=== PATIENT | male | born 1945 | race Hispanic/Latino ===

== ENCOUNTER → 2019-03-19 | Day surgery (SDC) | payer MEDICARE, BC ==
--- NOTE | 2019-03-15 15:04 | Diagnostic Imaging Report ---
EXAMINATION: CHEST 2 VIEWS INDICATION: Pre-operative COMPARISON: None FINDINGS: LINES/TUBES:None LUNGS:The lungs are well-inflated. No focal consolidation or pulmonary edema. PLEURA:No pleural effusion or pneumothorax. MEDIASTINUM:The cardiomediastinal silhouette appears normal in size and shape. BONES/SOFT TISSUES:No acute osseous injury. ABDOMEN:No free air under the diaphragm. IMPRESSION: No focal pneumonia or pulmonary edema. Signed by: Faby Gonsalez MD on 03/15/2019 3:01 PM
[~2019-03-19] MED LIST: ACETAMINOPHEN 1000 MG/100 ML 100 ML IV ONE; AMLODIPINE BESY10 MG PO; ATORVASTATIN CA10 MG PO; BACTRIM DS TAB1 EACH PO; BUPIVACAINE 0.25% 30ML SDV INJ ONE; CALCITRIOL0.25 MCG PO; CEFAZOLIN SOD 1 GM/NS 50ML 100 ML IV ONE; CELLCEPT500 MG PO; DEXAMETHASONE SOD PHOS INJ 4 MG/ML VIAL ONE; FENTANYL CITRATE/PF 100MCG/2 ML INJ ONE; HYDRALAZINE HCL25 MG PO; LEVOTHYROXINE50 MCG PO; LIDOCAINE HCL (LTA) 4 ML SOLN ONE; LIDOCAINE HCL 2% JELLY 5 ML TUBE ONE; LIDOCAINE HCL 2% LOCAL INJ 5 ML SDV VIAL INJ ONE; LOSARTAN POTASS25 MG; MIDAZOLAM HCL 2 MG/2 ML VIAL ONE; MULTI-VITAMIN1 EACH; ONDANSETRON HCL INJ 2MG/ML 2ML 2 MG/ML VIAL ONE; PANTOPRAZOLE SO40 MG PO; PROGRAF0.5 MG; PROPOFOL IV EMULSION 10 MG/ML 20 ML VIAL ONE; ROCURONIUM BROMIDE 10 MG/ML 5ML VIAL ONE; SEVOFLURANE INHAL SOLN 250 ML PEN BTL ONE; SUGAMMADEX SODIUM 200 MG/2 ML VIAL IV ONE
--- OUTSIDE RECORDS SUMMARY | 2019-03-19 07:17 | XMS REPORT ---
Author Author [facility] [place] Address Unknown Phone Unavailable Care Team Providers [facility] Director Name Role Phone Freda SARMIENTO Unavailable Unavailable AGUSSHANTE SIDDIQUI Unavailable Unavailable Problems This patient has no known problems. Allergies, Adverse Reactions, Alerts This patient has no known allergies or adverse reactions. Medications This patient has no known medications. Encounters Start Date/Time End Date/Time Encounter Type Admission Type Attending Clinicians Care Facility Care Department Encounter ID 2018-08-28 09:16:29 Outpatient [facility] [id number] 2018-07-04 06:45:00 2018-07-04 06:45:00 Outpatient [facility] [id number] Results Test Description Test Time Test Comments Text Results Atomic Results Result Comments CHEST 2 VIEWS 2019-03-15 15:01:00 [place] [id number] Patient Name: NORAH YAN MR #: [id number] : 1945 Age/Sex: 74/M Req #: [id number] Adm Physician: Ordered by: NOHEMY SARMIENTO MD Report #: [id number] Location: OR Room/Bed: Procedure: [id number] DX/CHEST 2 VIEWS Exam Date: 03/15/19 Exam Time: 1435 REPORT STATUS: Signed EXAMINATION: CHEST 2 VIEWS INDICATION: Pre-operative COMPARISON: None FINDINGS: LINES/TUBES:None LUNGS:The lungs are well-inflated. No focal consolidation or pulmonary edema. PLEURA:No pleural effusion or pneumothorax. MEDIASTINUM:The cardiomediastinal silhouette appears normal in size and shape. BONES/SOFT TISSUES:No acute osseous injury. ABDOMEN:No free air under the diaphragm. IMPRESSION: No focal pneumonia or pulmonary edema. Signed by: Khris Liu MD on 03/15/2019 3:01 PM Dictated By: KHRIS LIU MD 1501 Transcribed By: LESVIA LUNA on 03/15/19 1501 COPY TO: NOHEMY SARMIENTO MD TACROLIMUS LEVEL 2019 11:13:00 TACROLIMUS BLOOD (BEAKER) (test rhwy=321) 6.2 ng/mL 10.0-20.0 CREATININE, RANDOM [id number] 09:49:00* Test Item Value Reference Range Comments CREATININE URINE (BEAKER) (test xyga=069) 98.2 mg/dL Reference Range: No NormalsPROTEIN, RANDOM [id number] 09:49:00* Test Item Value Reference Range Comments PROTEIN, URINE (BEAKER) (test xruj=3876) 10 mg/dL 0-14 URINALYSIS W/ REFLEX URINE [id number] 09:25:00* Test Item Value Reference Range Comments COLOR (BEAKER) (test lwpy=560) Yellow CLARITY (BEAKER) (test olix=045) Clear SPECIFIC GRAVITY UA (BEAKER) (test wvut=311) 1.015 1.001-1.035 PH UA (BEAKER) (test akml=387) 6.0 5.0-8.0 PROTEIN UA (BEAKER) (test rtga=206) Negative Negative GLUCOSE UA (BEAKER) (test qsol=518) Negative Negative KETONES UA (BEAKER) (test dckq=622) Negative Negative BILIRUBIN UA (BEAKER) (test lzni=290) Negative Negative BLOOD UA (BEAKER) (test hajr=359) Negative Negative NITRITE UA (BEAKER) (test sneq=157) Negative Negative LEUKOCYTE ESTERASE UA (BEAKER) (test jrdf=007) Negative Negative UROBILINOGEN UA (BEAKER) (test wttm=423) 0.2 mg/dL 0.2-1.0 RBC UA (BEAKER) (test idvn=021) 1 /HPF WBC UA (BEAKER) (test okkh=590) < /HPF SQUAMOUS EPITHELIAL (BEAKER) (test qffm=254) < /HPF SOURCE(BEAKER) (test dydk=4532) COMPREHENSIVE METABOLIC [id number] 09:00:00* Test Item Value Reference Range Comments TOTAL PROTEIN (BEAKER) (test clmg=532) 6.8 gm/dL 6.0-8.3 ALBUMIN (BEAKER) (test yzuc=7582) 4.2 g/dL 3.5-5.0 ALKALINE PHOSPHATASE (BEAKER) (test hdbu=677) 87 U/L 40-150 BILIRUBIN TOTAL (BEAKER) (test ipac=040) 0.3 mg/dL 0.2-1.2 SODIUM (BEAKER) (test lonz=989) 141 meq/L 136-145 POTASSIUM (BEAKER) (test guve=444) 3.5 meq/L 3.5-5.1 CHLORIDE (BEAKER) (test fnwy=992) 108 meq/L 98-107 CO2 (BEAKER) (test tpyt=149) 25 meq/L 22-29 BLOOD UREA NITROGEN (BEAKER) (test luer=135) 18 mg/dL 7-21 CREATININE (BEAKER) (test khib=782) 1.19 mg/dL 0.57-1.25 GLUCOSE RANDOM (BEAKER) (test tpzm=928) 118 mg/dL 70-105 CALCIUM (BEAKER) (test pdgh=337) 8.9 mg/dL 8.4-10.2 AST (SGOT) (BEAKER) (test tskm=702) 19 U/L 5-34 ALT (SGPT) (BEAKER) (test nzfq=004) 21 U/L 6-55 EGFR (BEAKER) (test csuy=1757) 60 mL/min/1.73 sq m ESTIMATED GFR IS NOT ACCURATE CREATININE CLEARANCE IN PREDICTING GLOMERULAR FILTRATION RATE. ESTIMATED GFR IS NOT APPLICABLE FOR DIALYSIS PATIENTS. PTH, [id number] 08:54:00* Test Item Value Reference Range Comments PARATHYROID HORMONE INTACT (BEAKER) (test rufv=563) 95.2 pg/mL 8.5-72.5 CBC W/PLT COUNT & AUTO [id number] 08:33:00* Test Item Value Reference Range Comments WHITE BLOOD CELL COUNT (BEAKER) (test kwxk=496) 6.0 K/ L 3.5-10.5 RED BLOOD CELL COUNT (BEAKER) (test vgro=134) 4.36 M/ L 4.63-6.08 HEMOGLOBIN (BEAKER) (test xysj=663) 12.9 GM/DL 13.7-17.5 HEMATOCRIT (BEAKER) (test yekw=819) 40.1 % 40.1-51.0 MEAN CORPUSCULAR VOLUME (BEAKER) (test knad=621) 92.0 fL 79.0-92.2 MEAN CORPUSCULAR HEMOGLOBIN (BEAKER) (test qiid=378) 29.6 pg 25.7-32.2 MEAN CORPUSCULAR HEMOGLOBIN CONC (BEAKER) (test fkak=469) 32.2 GM/DL 32.3-36.5 RED CELL DISTRIBUTION WIDTH (BEAKER) (test xjea=214) 14.6 % 11.6-14.4 PLATELET COUNT (BEAKER) (test loya=238) 192 K/CU MM 150-450 MEAN PLATELET VOLUME (BEAKER) (test mqdb=171) 10.1 fL 9.4-12.4 NUCLEATED RED BLOOD CELLS (BEAKER) (test plbz=604) 0 /100 WBC 0-0 NEUTROPHILS RELATIVE PERCENT (BEAKER) (test oedo=423) 63 % LYMPHOCYTES RELATIVE PERCENT (BEAKER) (test shls=395) 23 % MONOCYTES RELATIVE PERCENT (BEAKER) (test cvnp=766) 9 % EOSINOPHILS RELATIVE PERCENT (BEAKER) (test fexj=187) 4 % BASOPHILS RELATIVE PERCENT (BEAKER) (test oith=333) 0 % NEUTROPHILS ABSOLUTE COUNT (BEAKER) (test yqbb=125) 3.76 K/ L 1.78-5.38 LYMPHOCYTES ABSOLUTE COUNT (BEAKER) (test edve=998) 1.38 K/ L 1.32-3.57 MONOCYTES ABSOLUTE COUNT (BEAKER) (test zujs=591) 0.55 K/ L 0.30-0.82 EOSINOPHILS ABSOLUTE COUNT (BEAKER) (test jxqj=432) 0.24 K/ L 0.04-0.54 BASOPHILS ABSOLUTE COUNT (BEAKER) (test tvct=216) 0.02 K/ L 0.01-0.08 IMMATURE GRANULOCYTES-RELATIVE PERCENT (BEAKER) (test jywq=3399) 0 % 0-1 TACROLIMUS [id number] 13:25:00* Test Item Value Reference Range Comments TACROLIMUS BLOOD (BEAKER) (test uufg=379) 5.6 ng/mL 10.0-20.0 URINALYSIS W/ REFLEX URINE [id number] 11:33:00* Test Item Value Reference Range Comments COLOR (BEAKER) (test tzct=760) Yellow CLARITY (BEAKER) (test skji=825) Clear SPECIFIC GRAVITY UA (BEAKER) (test zidh=152) 1.012 1.001-1.035 PH UA (BEAKER) (test tgui=141) 6.0 5.0-8.0 PROTEIN UA (BEAKER) (test yubi=956) Negative Negative GLUCOSE UA (BEAKER) (test oopf=208) Negative Negative KETONES UA (BEAKER) (test yuvm=542) Negative Negative BILIRUBIN UA (BEAKER) (test vbcc=076) Negative Negative BLOOD UA (BEAKER) (test kxdu=439) Negative Negative NITRITE UA (BEAKER) (test fcxx=656) Negative Negative LEUKOCYTE ESTERASE UA (BEAKER) (test dqmx=965) Negative Negative UROBILINOGEN UA (BEAKER) (test hbwr=256) 0.2 mg/dL 0.2-1.0 RBC UA (BEAKER) (test bkri=674) < /HPF WBC UA (BEAKER) (test apfp=600) < /HPF SQUAMOUS EPITHELIAL (BEAKER) (test mzac=658) < /HPF SOURCE(BEAKER) (test dzbk=3201) CREATININE, RANDOM [id number] 10:05:00* Test Item Value Reference Range Comments CREATININE URINE (BEAKER) (test niyo=615) 81.1 mg/dL Reference Range: No NormalsPROTEIN, RANDOM [id number] 10:05:00* Test Item Value Reference Range Comments PROTEIN, URINE (BEAKER) (test thnv=9605) 7 mg/dL 0-14 COMPREHENSIVE METABOLIC [id number] 09:19:00* Test Item Value Reference Range Comments TOTAL PROTEIN (BEAKER) (test vigw=997) 7.2 gm/dL 6.0-8.3 ALBUMIN (BEAKER) (test byef=4974) 4.4 g/dL 3.5-5.0 ALKALINE PHOSPHATASE (BEAKER) (test rvrs=655) 71 U/L 40-150 BILIRUBIN TOTAL (BEAKER) (test yulo=041) 0.6 mg/dL 0.2-1.2 SODIUM (BEAKER) (test kxkd=977) 139 meq/L 136-145 POTASSIUM (BEAKER) (test pzln=074) 3.5 meq/L 3.5-5.1 CHLORIDE (BEAKER) (test hkbj=218) 105 meq/L 98-107 CO2 (BEAKER) (test ckaa=810) 26 meq/L 22-29 BLOOD UREA NITROGEN (BEAKER) (test qlkt=093) 18 mg/dL 7-21 CREATININE (BEAKER) (test smkr=225) 1.13 mg/dL 0.57-1.25 GLUCOSE RANDOM (BEAKER) (test kwlv=783) 101 mg/dL 70-105 CALCIUM (BEAKER) (test ytlc=085) 9.1 mg/dL 8.4-10.2 AST (SGOT) (BEAKER) (test bunz=109) 16 U/L 5-34 ALT (SGPT) (BEAKER) (test burj=313) 16 U/L 6-55 EGFR (BEAKER) (test ptgg=1323) 64 mL/min/1.73 sq m ESTIMATED GFR IS NOT ACCURATE CREATININE CLEARANCE IN PREDICTING GLOMERULAR FILTRATION RATE. ESTIMATED GFR IS NOT APPLICABLE FOR DIALYSIS PATIENTS. PTH, [id number] 09:04:00* Test Item Value Reference Range Comments PARATHYROID HORMONE INTACT (BEAKER) (test rzew=958) 82.0 pg/mL 8.5-72.5 CBC W/PLT COUNT & AUTO [id number] 08:40:00* Test Item Value Reference Range Comments WHITE BLOOD CELL COUNT (BEAKER) (test ravz=630) 8.0 K/ L 3.5-10.5 RED BLOOD CELL COUNT (BEAKER) (test nblp=859) 4.48 M/ L 4.63-6.08 HEMOGLOBIN (BEAKER) (test phsn=871) 13.0 GM/DL 13.7-17.5 HEMATOCRIT (BEAKER) (test cwip=891) 41.7 % 40.1-51.0 MEAN CORPUSCULAR VOLUME (BEAKER) (test wltm=253) 93.1 fL 79.0-92.2 MEAN CORPUSCULAR HEMOGLOBIN (BEAKER) (test ieac=828) 29.0 pg 25.7-32.2 MEAN CORPUSCULAR HEMOGLOBIN CONC (BEAKER) (test dcao=335) 31.2 GM/DL 32.3-36.5 RED CELL DISTRIBUTION WIDTH (BEAKER) (test oayv=007) 14.6 % 11.6-14.4 PLATELET COUNT (BEAKER) (test bohl=996) 207 K/CU MM 150-450 MEAN PLATELET VOLUME (BEAKER) (test mwfa=939) 10.0 fL 9.4-12.4 NUCLEATED RED BLOOD CELLS (BEAKER) (test amyc=218) 0 /100 WBC 0-0 NEUTROPHILS RELATIVE PERCENT (BEAKER) (test zhlu=065) 65 % LYMPHOCYTES RELATIVE PERCENT (BEAKER) (test oddm=267) 21 % MONOCYTES RELATIVE PERCENT (BEAKER) (test ndwy=535) 9 % EOSINOPHILS RELATIVE PERCENT (BEAKER) (test unae=647) 5 % BASOPHILS RELATIVE PERCENT (BEAKER) (test eozk=305) 1 % NEUTROPHILS ABSOLUTE COUNT (BEAKER) (test svol=443) 5.15 K/ L 1.78-5.38 LYMPHOCYTES ABSOLUTE COUNT (BEAKER) (test mbck=932) 1.64 K/ L 1.32-3.57 MONOCYTES ABSOLUTE COUNT (BEAKER) (test ksom=338) 0.74 K/ L 0.30-0.82 EOSINOPHILS ABSOLUTE COUNT (BEAKER) (test xipj=764) 0.38 K/ L 0.04-0.54 BASOPHILS ABSOLUTE COUNT (BEAKER) (test pien=483) 0.04 K/ L 0.01-0.08 IMMATURE GRANULOCYTES-RELATIVE PERCENT (BEAKER) (test kgbq=8585) 0 % 0-1 TACROLIMUS [id number] 11:56:00* Test Item Value Reference Range Comments TACROLIMUS BLOOD (BEAKER) (test lpov=891) 7.0 ng/mL 10.0-20.0 CREATININE, RANDOM [id number] 10:53:00* Test Item Value Reference Range Comments CREATININE URINE (BEAKER) (test abxm=467) 78.5 mg/dL Reference Range: No NormalsPROTEIN, RANDOM [id number] 10:53:00* Test Item Value Reference Range Comments PROTEIN, URINE (BEAKER) (test ywyb=6361) 10 mg/dL 0-14 PTH, [id number] 10:27:00* Test Item Value Reference Range Comments PARATHYROID HORMONE INTACT (BEAKER) (test bsxd=411) 76.9 pg/mL 8.5-72.5 LIPID [id number] 10:20:00* Test Item Value Reference Range Comments TRIGLYCERIDES (BEAKER) (test gkck=900) 161 mg/dL CHOLESTEROL (BEAKER) (test uicy=369) 153 mg/dL HDL CHOLESTEROL (BEAKER) (test snxg=486) 43 mg/dL LDL CHOLESTEROL CALCULATED (BEAKER) (test evsz=803) 78 mg/dL Triglyceride Reference Range: Low Risk <150 Borderline 150-199 High Risk 200-499 Very High Risk >=500Cholesterol Reference Range: Low Risk <200 Borderline 200-239 High Risk >240HDL Cholesterol Reference Range: Low Risk >=60 High Risk <40LDL Cholesterol Reference Range: Optimal <100 Near Optimal 100-129 Borderline 130-159 High 160-189 Very High >=190 COMPREHENSIVE METABOLIC [id number] 10:20:00* Test Item Value Reference Range Comments TOTAL PROTEIN (BEAKER) (test gqxs=161) 7.0 gm/dL 6.0-8.3 ALBUMIN (BEAKER) (test uxxq=6113) 4.3 g/dL 3.5-5.0 ALKALINE PHOSPHATASE (BEAKER) (test qmuq=857) 68 U/L 40-150 BILIRUBIN TOTAL (BEAKER) (test iany=436) 0.6 mg/dL 0.2-1.2 SODIUM (BEAKER) (test bnhq=314) 140 meq/L 136-145 POTASSIUM (BEAKER) (test rfzo=085) 3.6 meq/L 3.5-5.1 CHLORIDE (BEAKER) (test qycc=312) 107 meq/L 98-107 CO2 (BEAKER) (test fcvl=520) 25 meq/L 22-29 BLOOD UREA NITROGEN (BEAKER) (test feut=627) 17 mg/dL 7-21 CREATININE (BEAKER) (test ydnh=604) 1.17 mg/dL 0.57-1.25 GLUCOSE RANDOM (BEAKER) (test anus=831) 109 mg/dL 70-105 CALCIUM (BEAKER) (test mcov=215) 9.1 mg/dL 8.4-10.2 AST (SGOT) (BEAKER) (test vnpu=023) 24 U/L 5-34 ALT (SGPT) (BEAKER) (test vyvr=594) 18 U/L 6-55 EGFR (BEAKER) (test kmhc=6451) 61 mL/min/1.73 sq m ESTIMATED GFR IS NOT ACCURATE CREATININE CLEARANCE IN PREDICTING GLOMERULAR FILTRATION RATE. ESTIMATED GFR IS NOT APPLICABLE FOR DIALYSIS PATIENTS. CBC W/PLT COUNT & AUTO [id number] 09:54:00* Test Item Value Reference Range Comments WHITE BLOOD CELL COUNT (BEAKER) (test xgty=830) 5.8 K/ L 3.5-10.5 RED BLOOD CELL COUNT (BEAKER) (test hdxx=656) 4.32 M/ L 4.63-6.08 HEMOGLOBIN (BEAKER) (test rwms=326) 12.7 GM/DL 13.7-17.5 HEMATOCRIT (BEAKER) (test owlg=831) 40.4 % 40.1-51.0 MEAN CORPUSCULAR VOLUME (BEAKER) (test roku=224) 93.5 fL 79.0-92.2 MEAN CORPUSCULAR HEMOGLOBIN (BEAKER) (test dyot=170) 29.4 pg 25.7-32.2 MEAN CORPUSCULAR HEMOGLOBIN CONC (BEAKER) (test hnoi=839) 31.4 GM/DL 32.3-36.5 RED CELL DISTRIBUTION WIDTH (BEAKER) (test egoe=647) 14.6 % 11.6-14.4 PLATELET COUNT (BEAKER) (test aokd=318) 188 K/CU MM 150-450 MEAN PLATELET VOLUME (BEAKER) (test moqs=745) 10.1 fL 9.4-12.4 NUCLEATED RED BLOOD CELLS (BEAKER) (test prpj=696) 0 /100 WBC 0-0 NEUTROPHILS RELATIVE PERCENT (BEAKER) (test pqho=355) 63 % LYMPHOCYTES RELATIVE PERCENT (BEAKER) (test acqp=429) 20 % MONOCYTES RELATIVE PERCENT (BEAKER) (test lgvc=004) 10 % EOSINOPHILS RELATIVE PERCENT (BEAKER) (test ypex=228) 7 % BASOPHILS RELATIVE PERCENT (BEAKER) (test wwad=175) 1 % NEUTROPHILS ABSOLUTE COUNT (BEAKER) (test bxkn=695) 3.67 K/ L 1.78-5.38 LYMPHOCYTES ABSOLUTE COUNT (BEAKER) (test uycw=176) 1.14 K/ L 1.32-3.57 MONOCYTES ABSOLUTE COUNT (BEAKER) (test niwq=829) 0.55 K/ L 0.30-0.82 EOSINOPHILS ABSOLUTE COUNT (BEAKER) (test ders=668) 0.40 K/ L 0.04-0.54 BASOPHILS ABSOLUTE COUNT (BEAKER) (test divv=676) 0.03 K/ L 0.01-0.08 IMMATURE GRANULOCYTES-RELATIVE PERCENT (BEAKER) (test shur=5601) 0 % 0-1 TACROLIMUS [id number] 11:44:00* Test Item Value Reference Range Comments TACROLIMUS BLOOD (BEAKER) (test rzjt=066) 6.2 ng/mL 10.0-20.0 PTH, [id number] 09:40:00* Test Item Value Reference Range Comments PARATHYROID HORMONE INTACT (BEAKER) (test gglg=872) 104.7 pg/mL 8.5-72.5 CREATININE, RANDOM [id number] 09:40:00* Test Item Value Reference Range Comments CREATININE URINE (BEAKER) (test pbuj=062) 96.6 mg/dL Reference Range: No NormalsPROTEIN, RANDOM [id number] 09:40:00* Test Item Value Reference Range Comments PROTEIN, URINE (BEAKER) (test yakl=2220) 7 mg/dL 0-14 COMPREHENSIVE METABOLIC [id number] 09:32:00* Test Item Value Reference Range Comments TOTAL PROTEIN (BEAKER) (test hbme=222) 6.8 gm/dL 6.0-8.3 ALBUMIN (BEAKER) (test uorg=4491) 4.3 g/dL 3.5-5.0 ALKALINE PHOSPHATASE (BEAKER) (test ggkc=433) 63 U/L 40-150 BILIRUBIN TOTAL (BEAKER) (test mxbm=801) 0.6 mg/dL 0.2-1.2 SODIUM (BEAKER) (test zbvo=094) 141 meq/L 136-145 POTASSIUM (BEAKER) (test skhc=753) 3.7 meq/L 3.5-5.1 CHLORIDE (BEAKER) (test fkqc=938) 107 meq/L 98-107 CO2 (BEAKER) (test dfip=257) 25 meq/L 22-29 BLOOD UREA NITROGEN (BEAKER) (test ouoq=599) 17 mg/dL 7-21 CREATININE (BEAKER) (test jlsm=394) 0.99 mg/dL 0.57-1.25 GLUCOSE RANDOM (BEAKER) (test ryev=641) 107 mg/dL 70-105 CALCIUM (BEAKER) (test xucz=169) 9.1 mg/dL 8.4-10.2 AST (SGOT) (BEAKER) (test ytuu=962) 20 U/L 5-34 ALT (SGPT) (BEAKER) (test rmlk=342) 20 U/L 6-55 EGFR (BEAKER) (test otwg=1085) 74 mL/min/1.73 sq m ESTIMATED GFR IS NOT ACCURATE CREATININE CLEARANCE IN PREDICTING GLOMERULAR FILTRATION RATE. ESTIMATED GFR IS NOT APPLICABLE FOR DIALYSIS PATIENTS. CBC W/PLT COUNT & AUTO [id number] 09:12:00* Test Item Value Reference Range Comments WHITE BLOOD CELL COUNT (BEAKER) (test zeah=013) 5.2 K/ L 3.5-10.5 RED BLOOD CELL COUNT (BEAKER) (test wwff=274) 4.42 M/ L 4.63-6.08 HEMOGLOBIN (BEAKER) (test uarn=838) 12.8 GM/DL 13.7-17.5 HEMATOCRIT (BEAKER) (test hxry=549) 40.7 % 40.1-51.0 MEAN CORPUSCULAR VOLUME (BEAKER) (test auan=330) 92.1 fL 79.0-92.2 MEAN CORPUSCULAR HEMOGLOBIN (BEAKER) (test ylbl=246) 29.0 pg 25.7-32.2 MEAN CORPUSCULAR HEMOGLOBIN CONC (BEAKER) (test rbfz=266) 31.4 GM/DL 32.3-36.5 RED CELL DISTRIBUTION WIDTH (BEAKER) (test eodz=388) 14.6 % 11.6-14.4 PLATELET COUNT (BEAKER) (test kvmb=785) 194 K/CU MM 150-450 MEAN PLATELET VOLUME (BEAKER) (test kczy=434) 10.3 fL 9.4-12.4 NUCLEATED RED BLOOD CELLS (BEAKER) (test hymr=180) 0 /100 WBC 0-0 NEUTROPHILS RELATIVE PERCENT (BEAKER) (test xswm=526) 59 % LYMPHOCYTES RELATIVE PERCENT (BEAKER) (test odvr=253) 25 % MONOCYTES RELATIVE PERCENT (BEAKER) (test qtzi=957) 11 % EOSINOPHILS RELATIVE PERCENT (BEAKER) (test btnh=451) 5 % BASOPHILS RELATIVE PERCENT (BEAKER) (test jacs=503) 1 % NEUTROPHILS ABSOLUTE COUNT (BEAKER) (test wqdv=463) 3.03 K/ L 1.78-5.38 LYMPHOCYTES ABSOLUTE COUNT (BEAKER) (test nzgn=922) 1.28 K/ L 1.32-3.57 MONOCYTES ABSOLUTE COUNT (BEAKER) (test jczp=259) 0.54 K/ L 0.30-0.82 EOSINOPHILS ABSOLUTE COUNT (BEAKER) (test vkzr=783) 0.26 K/ L 0.04-0.54 BASOPHILS ABSOLUTE COUNT (BEAKER) (test kbrv=199) 0.03 K/ L 0.01-0.08 IMMATURE GRANULOCYTES-RELATIVE PERCENT (BEAKER) (test xiwv=4266) 0 % 0-1 URINALYSIS W/ REFLEX URINE [id number] 09:11:00* Test Item Value Reference Range Comments COLOR (BEAKER) (test ifdp=410) Yellow CLARITY (BEAKER) (test ezgq=525) Clear SPECIFIC GRAVITY UA (BEAKER) (test rgak=877) 1.013 1.001-1.035 PH UA (BEAKER) (test tkte=321) 6.0 5.0-8.0 PROTEIN UA (BEAKER) (test sfbv=233) Negative Negative GLUCOSE UA (BEAKER) (test fdzp=247) Negative Negative KETONES UA (BEAKER) (test izwp=580) Negative Negative BILIRUBIN UA (BEAKER) (test xnqm=677) Negative Negative BLOOD UA (BEAKER) (test hezx=548) Negative Negative NITRITE UA (BEAKER) (test muzh=710) Negative Negative LEUKOCYTE ESTERASE UA (BEAKER) (test ssor=703) Negative Negative UROBILINOGEN UA (BEAKER) (test wevt=076) 0.2 mg/dL 0.2-1.0 RBC UA (BEAKER) (test ddgd=630) 1 /HPF WBC UA (BEAKER) (test nblp=084) 1 /HPF SOURCE(BEAKER) (test pkfv=3631) TACROLIMUS [id number] 12:43:00* Test Item Value Reference Range Comments TACROLIMUS BLOOD (BEAKER) (test psrz=932) 6.9 ng/mL 10.0-20.0 URINALYSIS W/ REFLEX URINE [id number] 11:29:00* Test Item Value Reference Range Comments COLOR (BEAKER) (test xxar=760) Light Yellow CLARITY (BEAKER) (test umvf=127) Clear SPECIFIC GRAVITY UA (BEAKER) (test pgyz=535) 1.012 1.001-1.035 PH UA (BEAKER) (test kbyt=027) 6.0 5.0-8.0 PROTEIN UA (BEAKER) (test ntje=329) Negative Negative GLUCOSE UA (BEAKER) (test eqgb=959) Negative Negative KETONES UA (BEAKER) (test zqlz=007) Negative Negative BILIRUBIN UA (BEAKER) (test wvgr=584) Negative Negative BLOOD UA (BEAKER) (test glyg=174) Negative Negative NITRITE UA (BEAKER) (test oirz=621) Negative Negative LEUKOCYTE ESTERASE UA (BEAKER) (test slsb=073) Negative Negative UROBILINOGEN UA (BEAKER) (test ahlw=621) 0.2 mg/dL 0.2-1.0 RBC UA (BEAKER) (test zrjj=802) 1 /HPF WBC UA (BEAKER) (test oanz=414) < /HPF SOURCE(BEAKER) (test npnc=8128) CREATININE, RANDOM [id number] 09:44:00* Test Item Value Reference Range Comments CREATININE URINE (BEAKER) (test hxml=565) 63.9 mg/dL Reference Range: No NormalsPROTEIN, RANDOM [id number] 09:44:00* Test Item Value Reference Range Comments PROTEIN, URINE (BEAKER) (test rkpm=3479) 8 mg/dL 0-14 COMPREHENSIVE METABOLIC [id number] 09:42:00* Test Item Value Reference Range Comments TOTAL PROTEIN (BEAKER) (test qtjs=612) 7.1 gm/dL 6.0-8.3 ALBUMIN (BEAKER) (test logz=5339) 4.2 g/dL 3.5-5.0 ALKALINE PHOSPHATASE (BEAKER) (test uxyv=283) 65 U/L 40-150 BILIRUBIN TOTAL (BEAKER) (test ywqw=697) 0.5 mg/dL 0.2-1.2 SODIUM (BEAKER) (test jfjr=785) 140 meq/L 136-145 POTASSIUM (BEAKER) (test atjm=285) 3.7 meq/L 3.5-5.1 CHLORIDE (BEAKER) (test xcea=664) 107 meq/L 98-107 CO2 (BEAKER) (test uylo=357) 24 meq/L 22-29 BLOOD UREA NITROGEN (BEAKER) (test znez=773) 21 mg/dL 7-21 CREATININE (BEAKER) (test qect=621) 0.98 mg/dL 0.57-1.25 GLUCOSE RANDOM (BEAKER) (test vnpe=609) 102 mg/dL 70-105 CALCIUM (BEAKER) (test pzgk=392) 9.1 mg/dL 8.4-10.2 AST (SGOT) (BEAKER) (test hwgs=362) 22 U/L 5-34 ALT (SGPT) (BEAKER) (test pnio=253) 19 U/L 6-55 EGFR (BEAKER) (test bbkw=6801) 75 mL/min/1.73 sq m ESTIMATED GFR IS NOT ACCURATE CREATININE CLEARANCE IN PREDICTING GLOMERULAR FILTRATION RATE. ESTIMATED GFR IS NOT APPLICABLE FOR DIALYSIS PATIENTS. PTH, [id number] 09:40:00* Test Item Value Reference Range Comments PARATHYROID HORMONE INTACT (BEAKER) (test pnzk=253) 74.8 pg/mL 8.5-72.5 CBC W/PLT COUNT & AUTO [id number] 09:24:00* Test Item Value Reference Range Comments WHITE BLOOD CELL COUNT (BEAKER) (test ohqt=285) 6.3 K/ L 3.5-10.5 RED BLOOD CELL COUNT (BEAKER) (test lkta=889) 4.45 M/ L 4.63-6.08 HEMOGLOBIN (BEAKER) (test tavn=739) 13.3 GM/DL 13.7-17.5 HEMATOCRIT (BEAKER) (test biuh=686) 41.3 % 40.1-51.0 MEAN CORPUSCULAR VOLUME (BEAKER) (test dvqm=865) 92.8 fL 79.0-92.2 MEAN CORPUSCULAR HEMOGLOBIN (BEAKER) (test qmwc=529) 29.9 pg 25.7-32.2 MEAN CORPUSCULAR HEMOGLOBIN CONC (BEAKER) (test gztv=397) 32.2 GM/DL 32.3-36.5 RED CELL DISTRIBUTION WIDTH (BEAKER) (test ehyf=793) 14.4 % 11.6-14.4 PLATELET COUNT (BEAKER) (test xcxb=232) 209 K/CU MM 150-450 MEAN PLATELET VOLUME (BEAKER) (test vrbc=832) 10.2 fL 9.4-12.4 NUCLEATED RED BLOOD CELLS (BEAKER) (test olwa=344) 0 /100 WBC 0-0 NEUTROPHILS RELATIVE PERCENT (BEAKER) (test shzx=734) 64 % LYMPHOCYTES RELATIVE PERCENT (BEAKER) (test ykcc=561) 21 % MONOCYTES RELATIVE PERCENT (BEAKER) (test fylm=346) 9 % EOSINOPHILS RELATIVE PERCENT (BEAKER) (test emoq=425) 5 % BASOPHILS RELATIVE PERCENT (BEAKER) (test csrh=545) 1 % NEUTROPHILS ABSOLUTE COUNT (BEAKER) (test yzuo=944) 4.05 K/ L 1.78-5.38 LYMPHOCYTES ABSOLUTE COUNT (BEAKER) (test zohc=140) 1.30 K/ L 1.32-3.57 MONOCYTES ABSOLUTE COUNT (BEAKER) (test vcwx=864) 0.59 K/ L 0.30-0.82 EOSINOPHILS ABSOLUTE COUNT (BEAKER) (test jvyw=036) 0.30 K/ L 0.04-0.54 BASOPHILS ABSOLUTE COUNT (BEAKER) (test jnew=356) 0.03 K/ L 0.01-0.08 IMMATURE GRANULOCYTES-RELATIVE PERCENT (BEAKER) (test fdny=5684) 0 % 0-1 TACROLIMUS [id number] 12:51:00* Test Item Value Reference Range Comments TACROLIMUS BLOOD (BEAKER) (test qyng=553) 5.7 ng/mL 10.0-20.0 LIPID [id number] 10:05:00* Test Item Value Reference Range Comments TRIGLYCERIDES (BEAKER) (test orhl=359) 447 mg/dL CHOLESTEROL (BEAKER) (test vtde=693) 155 mg/dL HDL CHOLESTEROL (BEAKER) (test pbye=563) 42 mg/dL Calculated LDL not valid if triglyceride >400 mg/dLTriglyceride Reference Range: Low Risk <150 Borderline 150-199 High Risk 200-499 Very High Risk >=500Cholesterol Reference Range: Low Risk <200 Borderline 200-239 High Risk >240HDL Cholesterol Reference Range: Low Risk >=60 High Risk <40LDL Cholesterol Reference Range: Optimal <100 Near Optimal 100-129 Borderline 130-159 High 160-189 Very High >=190 Specimen markedly lipemicCOMPREHENSIVE METABOLIC [id number] 09:37:00* Test Item Value Reference Range Comments TOTAL PROTEIN (BEAKER) (test czxv=150) 7.5 gm/dL 6.0-8.3 ALBUMIN (BEAKER) (test iilb=6746) 4.2 g/dL 3.5-5.0 ALKALINE PHOSPHATASE (BEAKER) (test gijs=185) 78 U/L 40-150 BILIRUBIN TOTAL (BEAKER) (test gvgd=328) 0.4 mg/dL 0.2-1.2 SODIUM (BEAKER) (test dvpo=066) 140 meq/L 136-145 POTASSIUM (BEAKER) (test fnhg=282) 4.2 meq/L 3.5-5.1 CHLORIDE (BEAKER) (test wxcr=718) 106 meq/L 98-107 CO2 (BEAKER) (test qfpa=873) 24 meq/L 22-29 BLOOD UREA NITROGEN (BEAKER) (test ihls=203) 16 mg/dL 7-21 CREATININE (BEAKER) (test foug=433) 1.17 mg/dL 0.57-1.25 GLUCOSE RANDOM (BEAKER) (test qvvg=875) 96 mg/dL 70-105 CALCIUM (BEAKER) (test kioj=087) 8.8 mg/dL 8.4-10.2 AST (SGOT) (BEAKER) (test cmwk=786) 20 U/L 5-34 ALT (SGPT) (BEAKER) (test zgvm=659) 16 U/L 6-55 EGFR (BEAKER) (test bwmt=2389) 61 mL/min/1.73 sq m ESTIMATED GFR IS NOT ACCURATE CREATININE CLEARANCE IN PREDICTING GLOMERULAR FILTRATION RATE. ESTIMATED GFR IS NOT APPLICABLE FOR DIALYSIS PATIENTS. Specimen markedly lipemicURINALYSIS W/ REFLEX URINE [id number] 09:36:00* Test Item Value Reference Range Comments COLOR (BEAKER) (test zjxy=872) Yellow CLARITY (BEAKER) (test svjp=541) Clear SPECIFIC GRAVITY UA (BEAKER) (test cbay=189) 1.015 1.001-1.035 PH UA (BEAKER) (test snzr=416) 6.0 5.0-8.0 PROTEIN UA (BEAKER) (test xaml=140) Negative Negative GLUCOSE UA (BEAKER) (test edhn=860) Negative Negative KETONES UA (BEAKER) (test jiyh=563) Negative Negative BILIRUBIN UA (BEAKER) (test excz=045) Negative Negative BLOOD UA (BEAKER) (test fdjd=377) Negative Negative NITRITE UA (BEAKER) (test lowm=599) Negative Negative LEUKOCYTE ESTERASE UA (BEAKER) (test tmkt=981) Negative Negative UROBILINOGEN UA (BEAKER) (test aqtj=582) 0.2 mg/dL 0.2-1.0 RBC UA (BEAKER) (test kvmf=129) < /HPF WBC UA (BEAKER) (test kthc=025) 7 /HPF SOURCE(BEAKER) (test ozaj=1754) PTH, [id number] 09:33:00* Test Item Value Reference Range Comments PARATHYROID HORMONE INTACT (BEAKER) (test yjha=099) 138.2 pg/mL 8.5-72.5 Effective 12/25/2013: Reference Range ChangeNew: 8.5-72.5 Previous: 15.0-90.0 CREATININE, RANDOM [id number] 09:30:00* Test Item Value Reference Range Comments CREATININE URINE (BEAKER) (test lopq=114) 129.3 mg/dL Reference Range: No NormalsPROTEIN, RANDOM [id number] 09:30:00* Test Item Value Reference Range Comments PROTEIN, URINE (BEAKER) (test mofv=3438) 9 mg/dL 0-14 CBC W/PLT COUNT & AUTO [id number] 09:12:00* Test Item Value Reference Range Comments WHITE BLOOD CELL COUNT (BEAKER) (test dghk=234) 7.6 K/ L 4.0-10.0 RED BLOOD CELL COUNT (BEAKER) (test kvha=192) 4.12 M/ L 4.20-5.80 HEMOGLOBIN (BEAKER) (test emql=794) 13.1 GM/DL 13.0-16.8 HEMATOCRIT (BEAKER) (test whag=527) 39.0 % 40.0-50.0 MEAN CORPUSCULAR VOLUME (BEAKER) (test mznx=701) 94.5 fL 82.0-98.0 MEAN CORPUSCULAR HEMOGLOBIN (BEAKER) (test rgrs=827) 31.9 pg 27.0-33.0 MEAN CORPUSCULAR HEMOGLOBIN CONC (BEAKER) (test yedn=046) 33.7 GM/DL 32.0-36.0 RED CELL DISTRIBUTION WIDTH (BEAKER) (test rwcv=824) 14.4 % 10.3-14.2 PLATELET COUNT (BEAKER) (test eria=326) 177 K/CU MM 150-430 MEAN PLATELET VOLUME (BEAKER) (test bqek=673) 7.5 fL 6.5-10.5 NUCLEATED RED BLOOD CELLS (BEAKER) (test cxki=244) 0 /100 WBC 0-0 NEUTROPHILS RELATIVE PERCENT (BEAKER) (test cvnx=791) 65 % LYMPHOCYTES RELATIVE PERCENT (BEAKER) (test uhls=813) 17 % MONOCYTES RELATIVE PERCENT (BEAKER) (test mvdx=034) 9 % EOSINOPHILS RELATIVE PERCENT (BEAKER) (test cieb=944) 8 % BASOPHILS RELATIVE PERCENT (BEAKER) (test bbno=674) 1 % NEUTROPHILS ABSOLUTE COUNT (BEAKER) (test gpfj=522) 4.93 K/ L 1.80-8.00 LYMPHOCYTES ABSOLUTE COUNT (BEAKER) (test otrm=775) 1.28 K/ L 1.48-4.50 MONOCYTES ABSOLUTE COUNT (BEAKER) (test vlxg=696) 0.69 K/ L 0.00-1.30 EOSINOPHILS ABSOLUTE COUNT (BEAKER) (test igwv=397) 0.63 K/ L 0.00-0.50 BASOPHILS ABSOLUTE COUNT (BEAKER) (test avdt=576) 0.05 K/ L 0.00-0.20 0.00TACROLIMUS [id number] 11:20:00* Test Item Value Reference Range Comments TACROLIMUS BLOOD (BEAKER) (test psox=261) 5.8 ng/mL 10.0-20.0 PROTEIN, RANDOM [id number] 09:36:00* Test Item Value Reference Range Comments PROTEIN, URINE (BEAKER) (test flny=1985) < mg/dL 0-14 CREATININE, RANDOM [id number] 09:31:00* Test Item Value Reference Range Comments CREATININE URINE (BEAKER) (test ebjt=124) 83.5 mg/dL Reference Range: No NormalsPTH, [id number] 09:28:00* Test Item Value Reference Range Comments PARATHYROID HORMONE INTACT (BEAKER) (test vtqj=079) 85.4 pg/mL 8.5-72.5 Effective 12/25/2013: Reference Range ChangeNew: 8.5-72.5 Previous: 15.0-90.0 COMPREHENSIVE METABOLIC [id number] 09:25:00* Test Item Value Reference Range Comments TOTAL PROTEIN (BEAKER) (test ctle=742) 7.3 gm/dL 6.0-8.3 Specimen slightly hemolyzed ALBUMIN (BEAKER) (test jyqu=7819) 4.2 g/dL 3.5-5.0 Specimen slightly hemolyzed ALKALINE PHOSPHATASE (BEAKER) (test qric=820) 75 U/L 40-150 BILIRUBIN TOTAL (BEAKER) (test flvm=775) 0.4 mg/dL 0.2-1.2 Specimen slightly hemolyzed SODIUM (BEAKER) (test ujib=601) 140 meq/L 136-145 POTASSIUM (BEAKER) (test pzhf=018) 3.7 meq/L 3.5-5.1 Specimen slightly hemolyzed CHLORIDE (BEAKER) (test fttm=507) 108 meq/L 98-107 CO2 (BEAKER) (test tbye=712) 22 meq/L 22-29 BLOOD UREA NITROGEN (BEAKER) (test dsdt=003) 21 mg/dL 7-21 CREATININE (BEAKER) (test reze=585) 1.08 mg/dL 0.57-1.25 Specimen slightly hemolyzed GLUCOSE RANDOM (BEAKER) (test eodi=457) 102 mg/dL 70-105 CALCIUM (BEAKER) (test igvi=587) 8.9 mg/dL 8.4-10.2 AST (SGOT) (BEAKER) (test tefl=787) 26 U/L 5-34 Specimen slightly hemolyzed ALT (SGPT) (BEAKER) (test kljq=744) 18 U/L 6-55 Specimen slightly hemolyzed EGFR (BEAKER) (test kxfe=5464) 67 mL/min/1.73 sq m ESTIMATED GFR IS NOT ACCURATE CREATININE CLEARANCE IN PREDICTING GLOMERULAR FILTRATION RATE. ESTIMATED GFR IS NOT APPLICABLE FOR DIALYSIS PATIENTS. URINALYSIS W/ REFLEX URINE [id number] 09:03:00* Test Item Value Reference Range Comments COLOR (BEAKER) (test xsso=514) Yellow CLARITY (BEAKER) (test zbyo=871) Clear SPECIFIC GRAVITY UA (BEAKER) (test jipr=338) 1.014 1.001-1.035 PH UA (BEAKER) (test fmmb=257) 5.5 5.0-8.0 PROTEIN UA (BEAKER) (test mnyv=056) Negative Negative GLUCOSE UA (BEAKER) (test fkjg=884) Negative Negative KETONES UA (BEAKER) (test ekwv=281) Negative Negative BILIRUBIN UA (BEAKER) (test wvbd=825) Negative Negative BLOOD UA (BEAKER) (test svpp=566) Negative Negative NITRITE UA (BEAKER) (test zclo=805) Negative Negative LEUKOCYTE ESTERASE UA (BEAKER) (test mckb=952) Negative Negative UROBILINOGEN UA (BEAKER) (test hpzg=250) 0.2 mg/dL 0.2-1.0 RBC UA (BEAKER) (test fiqb=229) 1 /HPF WBC UA (BEAKER) (test kuya=326) 1 /HPF SOURCE(BEAKER) (test njfl=0228) CBC W/PLT COUNT & AUTO [id number] 09:00:00* Test Item Value Reference Range Comments WHITE BLOOD CELL COUNT (BEAKER) (test ybpd=234) 7.5 K/ L 4.0-10.0 RED BLOOD CELL COUNT (BEAKER) (test ktcb=249) 4.15 M/ L 4.20-5.80 HEMOGLOBIN (BEAKER) (test hsiu=466) 12.7 GM/DL 13.0-16.8 HEMATOCRIT (BEAKER) (test xsjx=580) 39.0 % 40.0-50.0 MEAN CORPUSCULAR VOLUME (BEAKER) (test besh=456) 94.1 fL 82.0-98.0 MEAN CORPUSCULAR HEMOGLOBIN (BEAKER) (test bcdz=783) 30.7 pg 27.0-33.0 MEAN CORPUSCULAR HEMOGLOBIN CONC (BEAKER) (test gwkz=182) 32.6 GM/DL 32.0-36.0 RED CELL DISTRIBUTION WIDTH (BEAKER) (test avvh=284) 13.2 % 10.3-14.2 PLATELET COUNT (BEAKER) (test kshk=742) 182 K/CU MM 150-430 MEAN PLATELET VOLUME (BEAKER) (test jwfn=875) 7.3 fL 6.5-10.5 NUCLEATED RED BLOOD CELLS (BEAKER) (test frfb=629) 0 /100 WBC 0-0 NEUTROPHILS RELATIVE PERCENT (BEAKER) (test ecbd=752) 68 % LYMPHOCYTES RELATIVE PERCENT (BEAKER) (test bhlv=126) 19 % MONOCYTES RELATIVE PERCENT (BEAKER) (test cpzf=789) 9 % EOSINOPHILS RELATIVE PERCENT (BEAKER) (test zdpx=129) 4 % BASOPHILS RELATIVE PERCENT (BEAKER) (test zdrt=758) 0 % NEUTROPHILS ABSOLUTE COUNT (BEAKER) (test yzmk=140) 5.10 K/ L 1.80-8.00 LYMPHOCYTES ABSOLUTE COUNT (BEAKER) (test kith=315) 1.42 K/ L 1.48-4.50 MONOCYTES ABSOLUTE COUNT (BEAKER) (test vgvt=251) 0.66 K/ L 0.00-1.30 EOSINOPHILS ABSOLUTE COUNT (BEAKER) (test amks=168) 0.29 K/ L 0.00-0.50 BASOPHILS ABSOLUTE COUNT (BEAKER) (test jjbg=251) 0.03 K/ L 0.00-0.20 0.00
[2019-03-19 12:43] VITALS: BP 116/68
--- NOTE | 2019-03-19 16:54 | Operative Report ---
DATE OF PROCEDURE: 03/19/2019 SURGEON: Matt Trujillo MD PREOPERATIVE DIAGNOSIS: Ventral hernia. POSTOPERATIVE DIAGNOSIS: Incarcerated ventral hernia. PREOPERATIVE INDICATION: Treat disease, prevent hernia related complications such as strangulation. PROCEDURES: Laparoscopic repair of incarcerated ventral hernia (CPT 71457). ANESTHESIA: General. NANOTECHNOLOGY TECHNICIAN: Placido Sandoval, surgical instrument repair specialist (needed due to complexity of case). FLUIDS: As per anesthesia. ESTIMATED BLOOD LOSS: 5 mL. DRAINS: None. COMPLICATIONS: None. SPECIMENS: None. GRAFTS: 11.[address] mesh. FINDINGS: Incarcerated 2 cm epigastric hernia. PROCEDURE IN DETAIL: The patient was brought to the operating room and was intubated under general endotracheal anesthesia. He was sterilely prepped and draped in the usual fashion. A preprocedure pause was performed identifying the patient, use of perioperative antibiotics, intended procedure, and staff surgeon. A 5 mm left subcostal incision was made and a Veress needle was inserted. The abdomen was insufflated. An additional 12 mm trocar was placed in the left lower quadrant. Identified an incarcerated hernia with incarcerated omentum in the epigastric region. I then reduced the herniated contents. The defect was about 2 cm in size. I then repaired with 0-PDS suture via the Dawson-Xochitl technique in a zxueuc-sk-kakao fashion. I then reinforced it with 11.[address] mesh with the rough side rough side facing the abdominal wall and the smooth side facing the peritoneal cavity. This was circumferentially tacked with an AbsorbaTack device for excellent overlap of the hernia defect. Once that was complete, I then closed the large port site with 0-Vicryl suture using a Dawson-Xochitl technique in an interrupted fashion. We then verified hemostasis, removed the trocars and desufflated the abdomen. The incision sites were closed with 4-0 Monocryl suture in a subcuticular fashion. Dermabond dressings were applied. 0.25% bupivacaine was used both at the preperitoneal incision site. The patient tolerated the procedure well. Type of wound was type 1, clean. Matt Trujillo MD [facility] [place][id number]
== END | disposition home or self-care (01) ==
LOC: OR 07:00
PROVIDERS: ATTEND Surgery
DX: K43.6 Other and unspecified ventral hernia with obstruction, without gangrene (principal); Z94.0 Kidney transplant status; I10 Essential (primary) hypertension; Z88.8 Allergy status to other drugs, medicaments and biological substances; Z91.048 Other nonmedicinal substance allergy status
CPT/HCPCS: 49653; 71046; 93005; C1781; J0131; J0690; J1100; J2001 ×2; J2250; J2405; J2704; J3010